=== PATIENT | male | born 1960 | race Caucasian/White ===

== ENCOUNTER → 2017-05-08 | Outpatient (CLI) | payer OTHER | END | disposition home or self-care (01) | LOC: C.LABPBG 15:29 | PROVIDERS: ATTEND Nurse Practitioner Family | DX: R35.1 Nocturia (principal); N39.0 Urinary tract infection, site not specified; R39.9 Unspecified symptoms and signs involving the genitourinary system; R30.0 Dysuria ==

== ENCOUNTER 2024-10-08 08:52 | Inpatient (IN) ==
--- NOTE | 2024-10-07 08:24 | Anesthesiology Consultation ---
Date of Service October 07, 2024 Assessment & Plan (1) Encounter for pre-operative examination: - Check BSG DOS - Infectious disease screening: Per assessment on 10/07/24- No known recent infectious disease contacts or current infectious disease symptoms. Dialysis patient ([facility] in [place]). Will order Malik for DOS per protocol. - Trulicity instructions: Patient informed by PAT RN to stop 7 days prior to surgery- voiced understanding. DOS 10/08/24. Advised last dose to be 09/28/24. - Preop testing: Per Marita with surgeon's office, patient did not have preop labs/EKG/CXR performed and surgeon is requesting preop CBC, BMP, EKG, CXR be done DOS. She states surgeon made aware that preop urine culture was not performed and he indicates he is okay with proceeding without preop urine culture from his perspective. Chart Review Chart Review: Acceptable Risk for Surgery (pending preop testing DOS) and Patient NOT seen in Pre Admission Testing History Surgery Operation Date: 05/28/24 07:30 Proposed Procedures p Robotic Laparoscopic Radical Nephrectomy Left - Magdi Hahn MD Operation Date: 10/08/24 10:30 Proposed Procedures p Laparoscopic Hand-Assisted Nephrectomy - Left - Magdi Hahn MD Height/Weight Height: 5 ft 7.5 in Weight: 86.183 kg Allergies Allergy/AdvReac Type Severity Reaction Status Date / Time metronidazole Allergy Severe swelling Verified 10/04/24 14:24 of face iodine Allergy Intermediate vomiting Verified 10/04/24 14:24 adhesive tape Allergy Mild Rash Verified 10/04/24 14:24 latex Allergy Mild Rash Verified 10/04/24 14:24 Medications Home Medications Medication Instructions Recorded Confirmed Last Taken dulaglutide 1.5 mg/0.5 mL 1.5 mg subcut .COMPLEX 11/04/20 10/04/24 09/21/24 08:00 subcutaneous pen injector (Trulicity) insulin lispro 100 unit/mL See Rx Instructions subcut UD 11/04/20 10/04/24 08/30/22 19:00 subcutaneous solution (Humalog unknown U-100 Insulin) metoprolol succinate 50 mg 50 mg PO QAM 11/04/20 10/04/24 09/26/24 09:05 tablet,extended release 24 hr omega 7-ufj-ixx-fish oil 300 1 cap PO BID 07/11/22 10/04/24 09/25/24 21:00 mg-1,000 mg capsule (Fish Oil) chlorthalidone 25 mg tablet 25 mg PO QAM 08/22/22 10/04/24 08/30/22 06:00 cyclobenzaprine 10 mg tablet 10 mg PO TID PRN Muscle Spasm 02/28/24 10/04/24 Unknown amlodipine 5 mg tablet 5 mg PO QAM #90 tabs 04/04/24 10/04/24 09/26/24 09:05 pantoprazole 40 mg tablet,delayed 40 mg PO QAM #90 tabs 05/09/24 10/04/24 09/25/24 08:00 release (Protonix) hydroxyzine HCl 25 mg tablet 25 mg PO DAILY PRN anxiety 10/04/24 10/04/24 Unknown hydroxyzine pamoate 25 mg capsule 25 mg PO UD PRN Nausea 10/04/24 10/04/24 Unknown (Vistaril) prochlorperazine maleate 5 mg 5 mg PO UD PRN Nausea 10/04/24 10/04/24 Unknown tablet (Compazine) ropinirole 0.5 mg tablet 1 mg PO UD 10/04/24 10/04/24 Unknown tamsulosin 0.4 mg capsule 0.4 mg PO QAM 10/04/24 10/04/24 Unknown Past Medical History Medical History (Updated 10/07/24 @ 08:29 by Shu Nam) Asthma BPH (benign prostatic hyperplasia) Chronic back pain Chronic kidney disease, stage IV (severe) HD [facility] in [place] Follows with Dr. Man DM type 2 (diabetes mellitus, type 2) IDDM GERD (gastroesophageal reflux disease) HLD (hyperlipidemia) [place] (hard of hearing) HTN (hypertension) Insulin pump in place "Does not work" Takes humalog on sliding scale Limb alert care status Left AVF Nephrolithiasis, uric acid Hx Renal cancer Dr. Man monitors TMJ (temporomandibular joint disorder) clicking, denies hx locking Past Family History Family History Sister Kidney disease chronic cystitis and recurrent gross hematuria Mother Heart disease Other Hypertension Past Surgical History Surgical History (Updated 10/07/24 @ 08:29 by Shu Nam) AV fistula (2022) left upper arm History of biopsy renal - renal cancer History of cardiac catheterization (02/04/19) PH Venu- significant small vessel CAD involving first diagonal branch of LAD, not amenable to revascularization History of dialysis fistulography (09/26/24) [place], fistula ballooned History of umbilical hernia repair Hx of tonsillectomy Hx of total knee replacement R/L S/P rotator cuff repair Right Social History Smoking Status: Never smoker Do You Dip or Chew Tobacco: No Hx Alcohol Use: No Hx Substance Use: No substance use type: does not use Lab Results Anesthesia Preop Results Results Anesthesia Widget: K 4.7 mmol/L (3.5-5.1) 09/26/24 POC Glucose 191 mg/dl (70-99) H 09/26/24 COVID-19 PCR NEGATIVE (Negative) 10/05/24 SARS-CoV-2, RNA, NAAT NEGATIVE (NEGATIVE) 09/26/24 Testing Cardiac Catheterization Date: 02/04/19 Significant small vessel CAD involving first diagonal branch of LAD, not amenable to revascularization. Normal LV systolic function. Medical therapy and risk factor modification recommended.
[~2024-10-08 08:52] MED LIST: PHENYLEPHRINE 100MCG/ML 5ML SYR ONE; ePHEDrine sulfate 50 MG/5 ML SYR ONE
[2024-10-08] MEDS: SODIUM CHLORIDE 0.9% 1,000 ML IV SCH ×2 (09:54→17:07)
[2024-10-08 10:00] LABS: Basophils # (auto) 0.04 K/uL (0.00-0.20); Basophils % (auto) 0.7 %; Eosinophils # (auto) 0.28 K/uL (0.00-0.50); Hematocrit (blood only) 33.4 % (42.0-52.0); Hemoglobin 11.4 g/dl (14.0-18.0); Immature Granulocytes # (auto) 0.03 K/uL (0.01-0.20); Immature Granulocytes % (auto) 0.5 %; Lymphocytes # (auto) 1.11 K/uL (1.20-3.40); Lymphocytes % (auto) 19.9 %; Mean Corpuscular Hemoglobin 30.3 pg (25.0-34.0); Mean Corpuscular Hgb Conc 34.1 g/dL (32.0-36.0); Mean Corpuscular Volume 88.8 fL (80.0-100.0); Mean Platelet Volume 8.6 fL (9.4-12.4); Monocytes # (auto) 0.63 K/uL (0.11-0.59); Monocytes % (auto) 11.3 %; Neutrophils # (auto) 3.48 K/uL (1.40-6.50); Neutrophils % (auto) 62.6 %; Platelet Count 207 K/uL (130-400); RDW Coefficient of Variation 13.1 % (11.5-14.5); RDW Standard Deviation 42.4 fL (36.4-46.3); Red Blood Count 3.76 M/uL (4.70-6.10); White Blood Count 5.57 K/ul (4.8-10.8)
[2024-10-08 10:15] LABS: BUN Creatinine Ratio 8.5 (10-20); Calcium 10.1 mg/dl (8.6-10.3); Creatinine Clr Calc Pharmacy 13.9 ml/min; Potassium 4.1 mmol/L (3.5-5.1)
--- NOTE | 2024-10-08 10:33 | XRay Report ---
XR chest 2V PA/lateral CLINICAL HISTORY: Preoperative evaluation. COMPARISON STUDY: Chest radiograph August 25, 2022. FINDINGS: Lung volumes are unchanged. There is no pneumothorax or pleural effusion. There is no conso lidation to suggest pneumonia. Cardiomediastinal silhouette is stable. Pulmonary vascularity is evelia l. Bibasilar opacities favor atelectasis. IMPRESSION: No acute cardiopulmonary findings. No change in appearance of the chest. ACT 112: Negative or not required by law. Electronically signed by: Trino Sherman M.D. 10/08/2024 10:32 AM
--- NOTE | 2024-10-08 10:48 | History & Physical Bridge Note ---
Date of Service October 08, 2024 History & Physical Bridge Note I have examined the patient, reviewed the History & Physical and in the interval since the performance of the History & Physical I have noted the following changes of clinical significance: no changes noted
[2024-10-08] MEDS ORDERED: ROCURONIUM BROMIDE 10 MG/ML 5 ML VIAL IV ONE (11:10)
[2024-10-08] MEDS ORDERED: fentaNYL citrate PF 100 MCG/2 ML VIAL ONE ×2 (11:10→13:06)
[2024-10-08] MEDS ORDERED: PROPOFOL IV EMULSION 10 MG/ML 20 ML VIAL IV ONE (11:10)
[2024-10-08] MEDS ORDERED: MIDAZOLAM HCL 1 MG/ML 2ML VIAL ONE (11:10)
[2024-10-08] MEDS ORDERED: LIDOCAINE 2% 2 ML VIAL/AMP(20MG/ML) INFIL ONE (11:10)
[2024-10-08] MEDS ORDERED: PHENYLEPHRINE HCL 10 MG/ML VIAL ONE (11:16)
[2024-10-08] MEDS: ceFAZolin 2000MG 2,000 MG/15 ML SYR IV SCH (11:37)
--- NOTE | 2024-10-08 12:08 | Nephrology Consultation ---
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 [place] MWF 3:13 2K 2.5Ca Na139 HCO3 38, F-180NR, Qb 450/Qd 800 [id number] * Volume status and electrolyte balance are currently acceptable * Will schedule next HD for 10/09/24 * Monitor BMP, H&H (2) Papillary renal cell carcinoma: * s/p laparoscopic L nephrectomy 10/08/[address] Hahn History of Present Illness Reason for Consultation: ESKD-D Attending Physician: Magdi Hahn MD History of Present Illness Mr. Sharma is a 63 year old white male who is seen at the request of the [facility] hospitalist service due to ESKD-D. Information for the HPI is obtained from direct patient interview and review of the EMR. HPI is summarized as follows: Mr. Sharma has ESKD and dialyzes at [facility] under the care of Dr. Ortiz (MWF 3:13 2K 2.5Ca Na139 HCO3 38, F-180NR, Qb 450/Qd 800 [id number]). In 2020 he underwent L tunica-biloxi kidney biopsy at [facility]. 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 Mr. Sharma was monitored by Dr. Hahn and Dr. Roa with plans for nephrectomy once HD initiated. Mr. Sharma was started on IHD 02/18. He was admitted to [facility] today following his L nephrectomy. Plan will be for 6 weeks healing and then possible transition to home dialysis (PD or HHD). Mr. Sharma's medical history is significant for AODM, HTN, BPH, OA/DJD. He has a functional L upper arm AVF that was created by Dr. Marroquin 09/19. Mr. Sharma was seen in PACU. He voiced no medical concerns Allergies Allergy/AdvReac Type Severity Reaction Status Date / Time metronidazole Allergy Severe swelling Verified 10/08/24 09:36 of face iodine Allergy Intermediate vomiting Verified 10/08/24 09:36 adhesive tape Allergy Mild Rash Verified 10/08/24 09:36 latex Allergy Mild Rash Verified 10/08/24 09:36 Home Medications Medication Instructions Recorded Confirmed Type dulaglutide 1.5 mg/0.5 mL 1.5 mg subcut .COMPLEX 11/04/20 10/08/24 History subcutaneous pen injector (Trulicity) insulin lispro 100 unit/mL See Rx Instructions subcut UD 11/04/20 10/08/24 History subcutaneous solution (Humalog U-100 Insulin) metoprolol succinate 50 mg 50 mg PO QAM 11/04/20 10/08/24 History tablet,extended release 24 hr omega 2-lrl-jnd-fish oil 300 1 cap PO BID 07/11/22 10/08/24 History mg-1,000 mg capsule (Fish Oil) chlorthalidone 25 mg tablet 25 mg PO QAM 08/22/22 10/08/24 History cyclobenzaprine 10 mg tablet 10 mg PO TID PRN Muscle Spasm 02/28/24 10/08/24 History amlodipine 5 mg tablet 5 mg PO QAM #90 tabs 04/04/24 10/08/24 Rx pantoprazole 40 mg tablet,delayed 40 mg PO QAM #90 tabs 05/09/24 10/08/24 Rx release (Protonix) hydroxyzine HCl 25 mg tablet 25 mg PO DAILY PRN anxiety 10/04/24 10/08/24 History hydroxyzine pamoate 25 mg capsule 25 mg PO UD PRN Nausea 10/04/24 10/08/24 History (Vistaril) prochlorperazine maleate 5 mg 5 mg PO UD PRN Nausea 10/04/24 10/08/24 History tablet (Compazine) ropinirole 0.5 mg tablet 1 mg PO UD 10/04/24 10/08/24 History tamsulosin 0.4 mg capsule 0.4 mg PO QAM 10/04/24 10/08/24 History Patient History Medical History Limb alert care status Left AVF BPH (benign prostatic hyperplasia) Chronic kidney disease, stage IV (severe) HD [email or web address] in [place] Follows with Dr. Man Chronic back pain GERD (gastroesophageal reflux disease) Insulin pump in place "Does not work" Takes humalog on sliding scale DM type 2 (diabetes mellitus, type 2) IDDM Renal cancer Dr. Man monitors TMJ (temporomandibular joint disorder) clicking, denies hx locking [place] (hard of hearing) HLD (hyperlipidemia) HTN (hypertension) Asthma Nephrolithiasis, uric acid Hx Surgical History History of dialysis fistulography (09/26/24) [facility], fistula ballooned AV fistula (2022) left upper arm Hx of total knee replacement R/L S/P rotator cuff repair Right History of umbilical hernia repair History of biopsy renal - renal cancer History of cardiac catheterization (02/04/19) PH Venu- significant small vessel CAD involving first diagonal branch of LAD, not amenable to revascularization Hx of tonsillectomy Family History Sister Kidney disease chronic cystitis and recurrent gross hematuria Mother Heart disease Other Hypertension Social History Smoking Status: Never smoker Second Hand Exposure: No; Do You Dip or Chew Tobacco: No; Tobacco Cessation Education Requested by Patient: No Hx Alcohol Use: No Hx Substance Use: No Preferred Language: Malay Communication Ability: Effective Visual Impairment: No Limitations Hearing Ability: Normal Human Geography Instructor Required: No Beliefs That Will Affect Care: None Current Living Situation: Significant Other Current Living Situation Comment: lives withander Ramirez current occupational status: retired Other Information That Helps Us Care for You: No Feels Safe at Home: Yes Safety Concerns: Feels Safe At This Time Diet: diabetic Physical Activity Frequency: Does not Exercise Seatbelt Use: always Do you think of yourself as: straight/heterosexual Gender Identity: Male Assistive Devices: Cane and Glasses Review of Systems Constitutional: no fever Eyes: no problem reported Ear, Nose, Mouth, Throat: no problem reported Respiratory: no cough and no dyspnea Cardiovascular: no chest pain Gastrointestinal: no abdominal pain, no nausea, no vomiting and no diarrhea/loose stools Integumentary: no rash Physical Exam Constitutional: not in distress Eyes: PERRL, conjunctivae normal, anicteric sclerae ENMT: external ear and nose normal, oropharynx normal Neck: trachea midline, no thyromegaly Respiratory: normal respiratory effort, lungs clear to auscultation Cardiovascular: RRR, no murmur, no edema Extremities: + AV fistula (+ bruit) Gastrointestinal (Abdomen): Inspection/Auscultation: + hypoactive bowel sounds Musculoskeletal: Extremities: no cyanosis and no clubbing Skin: no rashes, warm and dry Neurologic: awake; not confused Results & Data Vital Signs (Past 12 Hours) Vital Signs Temp Pulse Resp BP Pulse Ox O2 Del Method 10/08/24 09:40 36.6 C 85 18 190/89 H 98 Room Air Laboratory Results Laboratory Results WBC 5.57 K/ul (4.8-10.8) 10/08/24 09:40 RBC 3.76 M/uL (4.70-6.10) L 10/08/24 09:40 Hgb 11.4 g/dl (14.0-18.0) L 10/08/24 09:40 Hct 33.4 % (42.0-52.0) L 10/08/24 09:40 MCV 88.8 fL (80.0-100.0) 10/08/24 09:40 MCH 30.3 pg (25.0-34.0) 10/08/24 09:40 MCHC 34.1 g/dL (32.0-36.0) 10/08/24 09:40 RDW Std Deviation 42.4 fL (36.4-46.3) 10/08/24 09:40 RDW Coeff of Rip 13.1 % (11.5-14.5) 10/08/24 09:40 Plt Count 207 K/uL (130-400) 10/08/24 09:40 MPV 8.6 fL (9.4-12.4) L 10/08/24 09:40 Immature Gran % (Auto) 0.5 % 10/08/24 09:40 Neut % (Auto) 62.6 % 10/08/24 09:40 Lymph % (Auto) 19.9 % 10/08/24 09:40 [place] % (Auto) 11.3 % 10/08/24 09:40 Eos % (Auto) 5.0 % 10/08/24 09:40 Baso % (Auto) 0.7 % 10/08/24 09:40 Neut # (Auto) 3.48 K/uL (1.40-6.50) 10/08/24 09:40 Lymph # (Auto) 1.11 K/uL (1.20-3.40) L 10/08/24 09:40 [place] # (Auto) 0.63 K/uL (0.11-0.59) H 10/08/24 09:40 Eos # (Auto) 0.28 K/uL (0.00-0.50) 10/08/24 09:40 Baso # (Auto) 0.04 K/uL (0.00-0.20) 10/08/24 09:40 Immature Gran # (Auto) 0.03 K/uL (0.01-0.20) 10/08/24 09:40 Sodium 142 mmol/L (136-145) 10/08/24 09:40 Potassium 4.1 mmol/L (3.5-5.1) 10/08/24 09:40 Chloride 102 mmol/L (98-107) 10/08/24 09:40 Carbon Dioxide 31 mmol/L (21-32) 10/08/24 09:40 Anion Gap 9 (3-11) 10/08/24 09:40 BUN 49 mg/dl (6-23) H 10/08/24 09:40 Creatinine 5.75 mg/dl (0.6-1.4) H* 10/08/24 09:40 Est Cr Clr Drug Dosing 13.9 ml/min 10/08/24 09:40 eGFR 10.24 10/08/24 09:40 BUN/Creatinine Ratio 8.5 (10-20) L 10/08/24 09:40 Glucose 118 mg/dl (70-99(Fasting)) H 10/08/24 09:40 POC Glucose 105 mg/dl (70-99) H 10/08/24 09:29 Calcium 10.1 mg/dl (8.6-10.3) 10/08/24 09:40 Blood Type A Positive 10/08/24 09:40 Antibody Screen NEGATIVE 10/08/24 09:40 Impressions Chest X-Ray 10/08/24 05:00 XR chest 2V PA/lateral CLINICAL HISTORY: Preoperative evaluation. COMPARISON STUDY: Chest radiograph August 25, 2022. FINDINGS: Lung volumes are unchanged. There is no pneumothorax or pleural effusion. There is no consolidation to suggest pneumonia. Cardiomediastinal silhouette is stable. Pulmonary vascularity is normal. Bibasilar opacities favor atelectasis. IMPRESSION: No acute cardiopulmonary findings. No change in appearance of the chest. ACT 112: Negative or not required by law. Electronically signed by: Trino Sherman M.D. 10/08/2024 10:32 AM PG Care Time/CCT Total # of Minutes Spent Total Time Spent with Patient: Total time spent is greater than 50% in coordination of care (as documented) at patient's floor/unit and/or counseling patient: Coding Level of Care Code 61019 IN/OBS CONSULT LVL 5,80M Diagnoses End stage kidney disease N18.6 Papillary renal cell carcinoma C64.9
[2024-10-08] MEDS ORDERED: DEXAMETHASONE SOD INJ 4 MG/ML VIAL ONE (12:19)
[2024-10-08] MEDS: BUPIVACAINE 0.5 % 5 MG/1 ML MPF 30ML VIAL ONE (13:19)
[2024-10-08] MEDS ORDERED: SUGAMMADEX SODIUM 200 MG/2 ML VIAL IV ONE (13:37)
--- NOTE | 2024-10-08 13:49 | Operative Report ---
PG Post Operative Report Pre & Post Diagnosis Operation Date: 10/08/24 10:30 Pre-Op Diagnosis: Papillary Renal Cell Carcanoma-left kidney Post-Op Diagnosis: Papillary Renal Cell Carcanoma-left kidney I identified the patient and participated in the time-out.: Yes Procedure Operation Date: 10/08/24 10:30 Actual Procedures p Laparoscopic Hand-Assisted Left Nephrectomy(Left) - Magdi Hahn MD Surgeon Magdi Hahn MD Civil Engineer Helper Noemy Tolentino Estimated Blood Loss 25 Findings Consistent with Post-Op Diagnosis Specimens Left kidney Description of Procedure Patient was identified in the preoperative holding area and appropriate informed consents reviewed and completed. He was transported to the operating suite he received appropriate preoperative antibiotics and anesthesia. Placed in a [id number] left side up lateral decubitus position and the bed was flexed. He was padded and braced appropriately before sterile prep and drape. I marked tentative locations for port site access and extraction site in the left lower quadrant. This Bran style incision was then made in the left lower quadrant I carried my dissection through Adair's fascia to the external oblique fascia, the internal oblique fascia, the transversalis fascia and ultimately the peritoneum. The peritoneum was punctured sharply and a finger sweep confirmed no evidence of adhesions. I then opened the peritoneum for the length of the incision before placing a GelPort retractor. I utilized a 12 mm laparoscopic port placed through the GelPort and insufflated the abdomen. I utilized the 30 degree lens to inspect the abdominal wall and confirmed that to 12 mm accounts payable assistant port sites located along the lateral border of the rectus muscle just under the costal margin and approximately 8. Centimeters inferior were both clear adhesions and safe to proceed with port placement. I incised the skin but ultimately placed the port through the abdominal wall onto my hand. We then began the laparoscopic portion of the case. I incised the white line of T[place] and mobilized the splenic flexure of the colon medializing the colon. The kidney is relatively small but has a significant amount of perinephric fat. I was able to dissect inferior to the kidney and onto the psoas muscle. I was able to elevate the lower pole of the kidney and stretch the hilar vessels. I did not readily visualize the gonadal vein but gradually worked my way up the medial aspect of the kidney until I encountered the inferior aspect of the renal vein. I could palpate the renal artery immediately behind it. Before transecting the vessels, I actually mobilized the kidney further by incising the lateral attachments to the kidney and the supe rior attachments to the kidney. This allowed me to elevate the kidney entirely and stretch the hilar vessels completely. I then utilized a staple load to control of the vessels together. The second load was fired between the adrenal gland and the kidney and a third load fired across the medial superior aspect of the kidney. I then utilized harmonic scalpel to continue my dissection around the upper pole of the kidney. Of note, I did incise the kidney slightly in this area during this dissection but no kidney was left behind. I was able to easily correct back to an appropriate plane. This left the lower cone of Gerota's fascia as well as the ureter intact. I utilized the harmonic scalpel to transect the structures. Hemostasis was excellent. The specimen was extracted through the GelPort. I inspected the renal fossa. There is a minor muscle ooze posteriorly from a small penetrating vessel, I was able to control this with the harmonic scalpel. Otherwise hemostasis was perfect. The colon was pushed back and lateral position and the omentum draped over the surgical site. I then proceeded to close the extraction port in multiple layers by first reapproximating the peritoneumon the off chance he returns to peritoneal dialysis I think peritoneal closure would be important. I then proceeded to close the internal oblique fascia followed by the external oblique fascia, both with running 0 Vicryl sutures. Adair's fascia was reapproximated before the skin was closed with 4-0 Monocryl. A 0 Vicryl on a UR 6 was utilized to close the to 12 mm accounts payable assistant ports followed by 4-0 Monocryl through the skin. Half percent Marcaine was utilized infiltrate the skin and muscle layers during the closure. Dermabond was placed over each incision. The specimen was passed off the table. Patient was reversed of anesthesia and taken to the recovery room in stable condition. There were no complications. Noemy Tolentino assisted from incision to closure I attest to the content of the Intraoperative Record and any orders documented therein. Any exceptions are noted below.
[2024-10-08] MEDS ORDERED: ePHEDrine sulfate 50 MG/ML AMP IV PRN (14:27)
[2024-10-08] MEDS ORDERED: fentaNYL citrate PF 100 MCG/2 ML VIAL IV PRN (14:27)
[2024-10-08] MEDS ORDERED: ONDANSETRON INJ 2 MG/ML 2 ML VIAL IV PRN ×2 (14:27→16:27)
[2024-10-08] MEDS ORDERED: HYDROmorphone INJ 1 MG/ML SYRINGE IV PRN (14:27)
[2024-10-08] MEDS ORDERED: ATROPINE SULFATE 0.1 MG/ML 10ML SYR IV PRN (14:27)
[2024-10-08 14:33] LABS: Basophils # (auto) 0.03 K/uL (0.00-0.20); Basophils % (auto) 0.4 %; Eosinophils # (auto) 0.21 K/uL (0.00-0.50); Eosinophils % (auto) 2.6 %; Hematocrit (blood only) 30.3 % (42.0-52.0); Hemoglobin 10.4 g/dl (14.0-18.0); Immature Granulocytes # (auto) 0.05 K/uL (0.01-0.20); Immature Granulocytes % (auto) 0.6 %; Lymphocytes # (auto) 0.93 K/uL (1.20-3.40); Lymphocytes % (auto) 11.5 %; Mean Corpuscular Hemoglobin 30.6 pg (25.0-34.0); Mean Corpuscular Hgb Conc 34.3 g/dL (32.0-36.0); Mean Corpuscular Volume 89.1 fL (80.0-100.0); Mean Platelet Volume 8.9 fL (9.4-12.4); Monocytes # (auto) 0.27 K/uL (0.11-0.59); Monocytes % (auto) 3.3 %; Neutrophils # (auto) 6.61 K/uL (1.40-6.50); Neutrophils % (auto) 81.6 %; Platelet Count 170 K/uL (130-400); RDW Standard Deviation 42.1 fL (36.4-46.3)
[2024-10-08 14:42] LABS: Calcium 9.2 mg/dl (8.6-10.3); Potassium 4.8 mmol/L (3.5-5.1)
[2024-10-08 15:00] LABS: BUN Creatinine Ratio 8.4 (10-20); Creatinine Clr Calc Pharmacy 13.7 ml/min
--- NOTE | 2024-10-08 15:34 | Anesthesiology Progress Note ---
Date of Service October 08, 2024 Anesthesia Post Procedure Vital Signs Vital Signs: Temp Pulse Pulse Resp BP Pulse Ox O2 Del Method 10/08/24 15:20 36.7 C 94 H 19 166/92 H 96 Nasal Cannula 10/08/24 15:05 96 H 17 164/90 H 96 Nasal Cannula 10/08/24 14:55 97 H 15 165/88 H 97 Nasal Cannula 10/08/24 14:45 95 H 12 176/93 H 98 Nasal Cannula 10/08/24 14:35 98 H 16 172/90 H 99 Oxymask 10/08/24 14:25 97 H 18 168/86 H 100 Oxymask 10/08/24 14:15 97 H 16 164/88 H 100 Oxymask 10/08/24 14:05 96 H 21 164/85 H 100 Oxymask 10/08/24 13:55 36.2 C L 103 H 15 166/88 H 96 Oxymask 10/08/24 09:40 36.6 C 85 18 190/89 H 98 Room Air O2 Flow Rate 10/08/24 15:20 2 10/08/24 15:05 2 10/08/24 14:55 2 10/08/24 14:45 2 10/08/24 14:35 2 10/08/24 14:25 2 10/08/24 14:15 4 10/08/24 14:05 6 10/08/24 13:55 8 10/08/24 09:40 Pain Intensity Abdomen: Pain Intensity: 5 Transfer of Care Handoff Completed per policy Notes Mental Status: alert / awake / arousable Patient Amnestic to Procedure: Yes Nausea / Vomiting: adequately controlled Pain: adequately controlled Airway Patency, RR, SpO2: stable & adequate BP & HR: stable & adequate Hydration State: stable & adequate Anesthetic Complications: no major complications apparent and Pt Satisfied with anesthetic care
[2024-10-08] MEDS ORDERED: ceFAZolin 2000MG 2,000 MG/15 ML SYR IV SCH (16:27)
[2024-10-08] MEDS ORDERED: hydrOXYzine HCl 25 MG TAB PO PRN (16:27)
[2024-10-08] MEDS ORDERED: PHARMACY GLYCEMIC MGMT CONSULT PRN (16:27)
[2024-10-08] MEDS: fentaNYL citrate PF 100 MCG/2 ML VIAL ONE (16:28)
[2024-10-08] MEDS: oxyCODONE HCL IR 5 MG TAB (IMMEDIATE RELEASE) PO PRN ×2 (16:46→20:00)
[2024-10-08] MEDS ORDERED: DEXTROSE 50% 50 ML SYRINGE IV PRN (17:00)
[2024-10-08] MEDS ORDERED: CARBOHYDRATES FOR HYPOGLYCEMIA PO PRN (17:00)
[2024-10-08] MEDS ORDERED: GLUCOSE 40% GEL 15 GM TUBE PO PRN (17:00)
[2024-10-08] MEDS ORDERED: GLUCAGON FOR INJ 1 MG VIAL SQ PRN (17:00)
[2024-10-08] MEDS ORDERED: GLUCOSE 10 TAB/TUBE PO PRN (17:00)
[2024-10-08] MEDS: INSULIN ASPART PER UNIT CHARGE SC SCH (17:07)
--- NOTE | 2024-10-08 17:17 | Pharmacy Report ---
Pharmacy Glycemic Short Note 2 - Date of Service October 08, 2024 - Glycemic Short BSG Results (Last 24 hours): 10/08/24 10/08/24 10/08/24 09:29 09:40 14:13 Glucose 118 H 229 H POC Glucose 105 H 10/08/24 16:19 Glucose POC Glucose 260 H OUTPATIENT ANTIDIABETIC REGIMEN: * trulicity, humalog SSI ASSESSMENT: * 63 year old, s/p surgery - POD 0. Pharmacy consulted for glycemic management. BSG>200s postop, likely related to steroids given intraoperatively. Will start novolog for now. Patient is type 2 diabetic managed on just SSI and trulicity outpatient. He is also ESRD on HD. Plan to add on long acting insulin at HS if BSGs still >200. PLAN FOR INPATIENT GLYCEMIC CONTROL: * Hold outpatient oral diabetes medications * Basal insulin * Lantus 0-10 units HS depending on BSG value * Bolus insulin * NovoLog per scale ACHS or Q6hrs while NPO * Goal Range: Low 110 mg/dL - High 140 mg/dL * Correction Factor: 35 mg/dL/unit * Nutritional / Prandial insulin per carb ratio of 1 unit per 10 grams CHO consumed
[2024-10-08] MEDS: ACETAMINOPHEN 325 MG TAB PO SCH (17:59)
[2024-10-08] MEDS: DOCUSATE SODIUM 100 MG CAP PO SCH (20:42)
--- NOTE | 2024-10-08 22:11 | Electrocardiogram Report ---
Test Reason : Blood Pressure : */* mmHG Vent. Rate : 83 BPM Atrial Rate : 83 BPM P-R Int : 162 ms QRS Dur : 104 ms QT Int : 410 ms P-R-T Axes : 0 2 63 degrees QTcB Int : 481 ms Normal sinus rhythm Minimal voltage criteria for LVH, may be normal variant Prolonged QT Abnormal ECG When compared with ECG of 25-Aug-2022 14:38, Nonspecific T wave abnormality no longer evident in Inferior leads Confirmed by Lane Mackenzie ([id number]) on 10/08/2024 10:10:39 PM Referred By: Magdi Hahn Confirmed By: Lane Mackenzie
[2024-10-09] MEDS: ceFAZolin 1000MG 1,000 MG/7.5 ML SYR IV SCH (05:50)
[2024-10-09 07:01] VITALS: RESP 16
[2024-10-09] MEDS: amLODIPine BESYLATE 5 MG TAB PO SCH (07:02)
[2024-10-09] MEDS: METOPROLOL SUCC 50MG EXT REL TAB PO SCH (07:02)
[2024-10-09 07:06] LABS: Basophils # (auto) 0.02 K/uL (0.00-0.20); Basophils % (auto) 0.2 %; Eosinophils # (auto) 0.01 K/uL (0.00-0.50); Eosinophils % (auto) 0.1 %; Hematocrit (blood only) 30.4 % (42.0-52.0); Hemoglobin 10.3 g/dl (14.0-18.0); Immature Granulocytes # (auto) 0.06 K/uL (0.01-0.20); Immature Granulocytes % (auto) 0.5 %; Lymphocytes # (auto) 1.13 K/uL (1.20-3.40); Lymphocytes % (auto) 9.1 %; Mean Corpuscular Hemoglobin 30.4 pg (25.0-34.0); Mean Corpuscular Hgb Conc 33.9 g/dL (32.0-36.0); Mean Corpuscular Volume 89.7 fL (80.0-100.0); Mean Platelet Volume 9.2 fL (9.4-12.4); Monocytes # (auto) 0.68 K/uL (0.11-0.59); Monocytes % (auto) 5.5 %; Neutrophils # (auto) 10.57 K/uL (1.40-6.50); Neutrophils % (auto) 84.6 %; Platelet Count 194 K/uL (130-400); RDW Coefficient of Variation 12.8 % (11.5-14.5); RDW Standard Deviation 42.3 fL (36.4-46.3); Red Blood Count 3.39 M/uL (4.70-6.10); White Blood Count 12.47 K/ul (4.8-10.8)
[2024-10-09 07:21] LABS: BUN Creatinine Ratio 7.8 (10-20); Calcium 9.7 mg/dl (8.6-10.3); Creatinine Clr Calc Pharmacy 10.9 ml/min; Potassium 5.8 mmol/L (3.5-5.1)
[2024-10-09] MEDS: CHLORTHALIDONE 25 MG TAB PO SCH (08:48)
[2024-10-09] MEDS: TAMSULOSIN HCL 0.4 MG CAP PO SCH (08:48)
[2024-10-09] MEDS: PANTOprazole 40 MG TAB PO SCH (08:49)
--- NOTE | 2024-10-09 08:49 | Nephrology Progress Note ---
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 Orders for HD placed in EMR. HD RN crop nutrition scientist has been notified * Monitor BMP, H&H (2) Papillary renal cell carcinoma: Plan: * s/p laparoscopic L nephrectomy 10/08/[address] Hahn Admission and Anticipated Discharge Date Admission Date: October 08, 2024 Subjective Mr. Sharma was evaluated in his hospital room this morning. He reports that he tolerated a liquid diet this morning. He is anxious to have HD and then hopefully return home. He voices no medical concerns. Review of Systems Constitutional: no fever Eyes: no problem reported Ear, Nose, Mouth, Throat: no problem reported Respiratory: no cough and no dyspnea Cardiovascular: no chest pain Gastrointestinal: no abdominal pain, no nausea, no vomiting and no diarrhea/lo ose stools Integumentary: no rash Physical Exam Constitutional: not in distress Eyes: PERRL, conjunctivae normal, anicteric sclerae ENMT: external ear and nose normal, oropharynx normal Neck: trachea midline, no thyromegaly Respiratory: normal respiratory effort, lungs clear to auscultation Cardiovascular: RRR, no murmur, no edema Extremities: + AV fistula (+ bruit) Gastrointestinal (Abdomen): Inspection/Auscultation: + hypoactive bowel sounds Musculoskeletal: Extremities: no cyanosis and no clubbing Skin: no rashes, warm and dry Neurologic: awake; not confused Results & Data Vital Signs (Past 12 Hours) Vital Signs Temp Pulse Resp BP Pulse Ox O2 Del Method 10/09/24 08:44 201/88 H 10/09/24 07:00 36.8 C 94 H 16 189/91 H 98 Room Air 10/09/24 03:03 36.9 C 93 H 18 181/90 H 95 Room Air 10/08/24 23:00 37.1 C 91 H 18 173/87 H 95 Room Air Laboratory Results Laboratory Results - last 24 hr 10/08/24 10/08/24 10/08/24 09:29 09:40 14:13 WBC 5.57 8.10 RBC 3.76 L 3.40 L Hgb 11.4 L 10.4 L Hct 33.4 L 30.3 L MCV 88.8 89.1 MCH 30.3 30.6 MCHC 34.1 34.3 RDW Std Deviation 42.4 42.1 RDW Coeff of Rip 13.1 13.0 Plt Count 207 170 MPV 8.6 L 8.9 L Immature Gran % (Auto) 0.5 0.6 Neut % (Auto) 62.6 81.6 Lymph % (Auto) 19.9 11.5 [place] % (Auto) 11.3 3.3 Eos % (Auto) 5.0 2.6 Baso % (Auto) 0.7 0.4 Neut # (Auto) 3.48 6.61 H Lymph # (Auto) 1.11 L 0.93 L [place] # (Auto) 0.63 H 0.27 Eos # (Auto) 0.28 0.21 Baso # (Auto) 0.04 0.03 Immature Gran # (Auto) 0.03 0.05 Sodium 142 140 Potassium 4.1 4.8 Chloride 102 103 Carbon Dioxide 31 26 Anion Gap 9 11 BUN 49 H 49 H Creatinine 5.75 H* 5.84 H* Est Cr Clr Drug Dosing 13.9 13.7 eGFR 10.24 10.05 BUN/Creatinine Ratio 8.5 L 8.4 L Glucose 118 H 229 H POC Glucose 105 H Calcium 10.1 9.2 Blood Type A Positive Antibody Screen NEGATIVE 10/08/24 10/08/24 10/09/24 16:19 20:26 06:24 WBC 12.47 H RBC 3.39 L Hgb 10.3 L Hct 30.4 L MCV 89.7 MCH 30.4 MCHC 33.9 RDW Std Deviation 42.3 RDW Coeff of Rip 12.8 Plt Count 194 MPV 9.2 L Immature Gran % (Auto) 0.5 Neut % (Auto) 84.6 Lymph % (Auto) 9.1 [place] % (Auto) 5.5 Eos % (Auto) 0.1 Baso % (Auto) 0.2 Neut # (Auto) 10.57 H Lymph # (Auto) 1.13 L [place] # (Auto) 0.68 H Eos # (Auto) 0.01 Baso # (Auto) 0.02 Immature Gran # (Auto) 0.06 Sodium 140 Potassium 5.8 H D Chloride 101 Carbon Dioxide 26 Anion Gap 13 H BUN 57 H Creatinine 7.29 H* D Est Cr Clr Drug Dosing 10.9 eGFR 7.70 BUN/Creatinine Ratio 7.8 L Glucose 162 H POC Glucose 260 H 209 H Calcium 9.7 Blood Type Antibody Screen 10/09/24 07:38 WBC RBC Hgb Hct MCV MCH MCHC RDW Std Deviation RDW Coeff of Rip Plt Count MPV Immature Gran % (Auto) Neut % (Auto) Lymph % (Auto) [place] % (Auto) Eos % (Auto) Baso % (Auto) Neut # (Auto) Lymph # (Auto) [place] # (Auto) Eos # (Auto) Baso # (Auto) Immature Gran # (Auto) Sodium Potassium Chloride Carbon Dioxide Anion Gap BUN Creatinine Est Cr Clr Drug Dosing eGFR BUN/Creatinine Ratio Glucose POC Glucose 151 H Calcium Blood Type Antibody Screen Laboratory Results - last 24 hr 10/08/24 10/08/24 10/08/24 09:29 09:40 14:13 WBC 5.57 8.10 RBC 3.76 L 3.40 L Hgb 11.4 L 10.4 L Hct 33.4 L 30.3 L MCV 88.8 89.1 MCH 30.3 30.6 MCHC 34.1 34.3 RDW Std Deviation 42.4 42.1 RDW Coeff of Rip 13.1 13.0 Plt Count 207 170 MPV 8.6 L 8.9 L Immature Gran % (Auto) 0.5 0.6 Neut % (Auto) 62.6 81.6 Lymph % (Auto) 19.9 11.5 [place] % (Auto) 11.3 3.3 Eos % (Auto) 5.0 2.6 Baso % (Auto) 0.7 0.4 Neut # (Auto) 3.48 6.61 H Lymph # (Auto) 1.11 L 0.93 L [place] # (Auto) 0.63 H 0.27 Eos # (Auto) 0.28 0.21 Baso # (Auto) 0.04 0.03 Immature Gran # (Auto) 0.03 0.05 Sodium 142 140 Potassium 4.1 4.8 Chloride 102 103 Carbon Dioxide 31 26 Anion Gap 9 11 BUN 49 H 49 H Creatinine 5.75 H* 5.84 H* Est Cr Clr Drug Dosing 13.9 13.7 eGFR 10.24 10.05 BUN/Creatinine Ratio 8.5 L 8.4 L Glucose 118 H 229 H POC Glucose 105 H Calcium 10.1 9.2 Blood Type A Positive Antibody Screen NEGATIVE 10/08/24 10/08/24 10/09/24 16:19 20:26 06:24 WBC 12.47 H RBC 3.39 L Hgb 10.3 L Hct 30.4 L MCV 89.7 MCH 30.4 MCHC 33.9 RDW Std Deviation 42.3 RDW Coeff of Rip 12.8 Plt Count 194 MPV 9.2 L Immature Gran % (Auto) 0.5 Neut % (Auto) 84.6 Lymph % (Auto) 9.1 [place] % (Auto) 5.5 Eos % (Auto) 0.1 Baso % (Auto) 0.2 Neut # (Auto) 10.57 H Lymph # (Auto) 1.13 L [place] # (Auto) 0.68 H Eos # (Auto) 0.01 Baso # (Auto) 0.02 Immature Gran # (Auto) 0.06 Sodium 140 Potassium 5.8 H D Chloride 101 Carbon Dioxide 26 Anion Gap 13 H BUN 57 H Creatinine 7.29 H* D Est Cr Clr Drug Dosing 10.9 eGFR 7.70 BUN/Creatinine Ratio 7.8 L Glucose 162 H POC Glucose 260 H 209 H Calcium 9.7 Blood Type Antibody Screen 10/09/24 07:38 WBC RBC Hgb Hct MCV MCH MCHC RDW Std Deviation RDW Coeff of Rip Plt Count MPV Immature Gran % (Auto) Neut % (Auto) Lymph % (Auto) [place] % (Auto) Eos % (Auto) Baso % (Auto) Neut # (Auto) Lymph # (Auto) [place] # (Auto) Eos # (Auto) Baso # (Auto) Immature Gran # (Auto) Sodium Potassium Chloride Carbon Dioxide Anion Gap BUN Creatinine Est Cr Clr Drug Dosing eGFR BUN/Creatinine Ratio Glucose POC Glucose 151 H Calcium Blood Type Antibody Screen PG Care Time/CCT Total # of Minutes Spent Total Time Spent with Patient: Total time spent is greater than 50% in coordination of care (as documented) at patient's floor/unit and/or counseling patient: Coding Level of Care Code 80503 SUB INP/OBS CARE 3/50MIN Diagnoses End stage kidney disease N18.6 Papillary renal cell carcinoma C64.9
--- NOTE | 2024-10-09 09:01 | Urology Progress Note ---
Date of Service October 09, 2024 Assessment & Plan (1) Papillary renal cell carcinoma: Plan Biopsy-proven renal cell carcinoma status post left radical nephrectomy yesterday Ambulate Catheter out Dialysis today and likely discharge home thereafter Admission and Anticipated Discharge Date Admission Date: October 08, 2024 Subjective Postop day #1 status post left radical nephrectomy Recovery very much on pace Physical Exam Physical Exam: Incisions appropriate, no erythema, no ecchymosis No drainage Results & Data Vital Signs (Past 12 Hours) Vital Signs Temp Pulse Resp BP Pulse Ox O2 Del Method 10/09/24 08:44 201/88 H 10/09/24 07:00 36.8 C 94 H 16 189/91 H 98 Room Air 10/09/24 03:03 36.9 C 93 H 18 181/90 H 95 Room Air 10/08/24 23:00 37.1 C 91 H 18 173/87 H 95 Room Air PG Care Time/CCT Total # of Minutes Spent Total Time Spent with Patient: Total time spent is greater than 50% in coordination of care (as documented) at patient's floor/unit and/or counseling patient: Coding Level of Care Code None Diagnoses Papillary renal cell carcinoma C64.9
[2024-10-09] MEDS: rOPINIRole HCL 1 MG TABLET PO SCH (10:28)
[2024-10-09] MEDS: hydrOXYzine HCl 25 MG TAB PO PRN (10:28)
[2024-10-09] MEDS: PROCHLORPERAZINE MALEATE 5 MG TAB PO PRN (10:28)
[2024-10-09 14:46] VITALS: BP 164/78; PULSE 86; TEMP 98.4; O2SAT 96
--- NOTE | 2024-10-09 14:58 | Discharge Summary ---
Date of Service October 09, 2024 Admission HPI Per Admitting Provider Patient with biopsy proven papillary renal cell carcinoma of the left kidney here for scheduled left radical nephrectomy. Principal Diagnosis Papillary renal cell carcinoma. Discharge Exam Constitutional no acute distress Respiratory normal respiratory effort; no respiratory distress and no labored breathing Gastrointestinal (Abdomen) Inspection/Auscultation: abdomen normal to inspection Musculoskeletal Head/Neck/Chest: normocephalic Skin Incisions C/D/I with dermabond Neurologic moves all extremities and awake Psychiatric Orientation: alert and oriented x 3 Discharge Data Allergies Allergy/AdvReac Type Severity Reaction Status Date / Time metronidazole Allergy Severe swelling Verified 10/08/24 09:36 of face iodine Allergy Intermediate vomiting Verified 10/08/24 09:36 adhesive tape Allergy Mild Rash Verified 10/08/24 09:36 latex Allergy Mild Rash Verified 10/08/24 09:36 Consultations 10/08/24 15:53 Consult Nephrology Routine 10/08/24 16:27 Consult Nephrology Routine Procedures Performed Operation Date: 10/08/24 10:30 Actual Procedures p Laparoscopic Hand-Assisted Left Nephrectomy(Left) - Magdi Hahn MD Hospital Course (1) Papillary renal cell carcinoma: Plan Biopsy-proven renal cell carcinoma status post left radical nephrectomy yesterday Ambulate Catheter out Dialysis today and likely discharge home thereafter Total Time Total Time Spent Total Time Spent (In Minutes): 29 Discharge Plan Discharge Items Patient Disposition: Home - Self-Care Reason For Visit: Malignant Neoplasm of Unspecified Kidney, Except R Discharge Diagnosis: Papillary renal cell carcinoma, left Activity: Per Instructions section Lifting: No more than 10 pounds Bathing Comment: Okay to shower after discharge, no tub bath or soaking Sexual Activity: Wait until after follow-up appointment Exercise/Sports: Wait until after follow-up appointment Driving/Machine Use: No driving while taking prescription pain medication Non-emergency contact: Surgeon and Urologist Call non-emergency contact if: your pain is not controlled, you have a fever, your temperature is above 101, your wound has increased redness, your wound has increased drainage and your wound pain has increased Follow-up/Referrals: Elver Riley [Primary Care Provider] - Diet: Dialysis Renal Addtl Attending Provider Instructions: Please take all medications as prescribed and keep all follow-ups as scheduled. Please call our office at [phone] with any questions, concerns or need to reschedule appointments for any reason. We are happy to assist you. Recovering at home: We recommend having someone with you for the first few days after surgery to help care for you. It is okay to shower tomorrow. Please avoid swimming, bathing or using hot tub until incisions are well healed. Avoid driving until you are not requiring pain medication any further. Walk at least a few times a day. Increase your distance, as you feel able. Stairs in your home are okay. Please avoid strenuous or sexual activity until your follow-up. We recommend using stool softener (i.e. Colace) to prevent constipation and s training, especially the first two weeks post operatively. Call [facility] at [phone] if you experience: Chest pain or trouble breathing (call 223 or go to the hospital). Fever of 101F or higher Symptoms of infection at incision site, including redness or swelling, warmth, or bad-smelling drainage If you have catheter, and you notice: o Bloody urine or drainage that is dark red or has large clots (Please remember a small amount of blood is normal) o No drainage from the catheter for more than 6 hours o The catheter comes out of your bladder Pain that is not controlled with medicines Pending Studies at Discharge: Yes Stand-Alone Forms: My [facility] Powered Now, Smoking Cessation Medications and DC Order Prescriptions: New tramadol 25 mg tablet 25 mg PO Q12H PRN (Reason: pain) Qty: 7 0RF Continued cyclobenzaprine 10 mg tablet 10 mg PO TID PRN (Reason: Muscle Spasm) Rx Instructions: NOT TO BE USED on dialysis days amlodipine 5 mg tablet 5 mg PO QAM Qty: 90 3RF pantoprazole [Protonix] 40 mg tablet,delayed release (DR/EC) 40 mg PO QAM Qty: 90 3RF metoprolol succinate 50 mg tablet extended release 24 hr 50 mg PO QAM omega 5-bqa-ywh-fish oil [Fish Oil] 300-1,000 mg capsule 1 cap PO BID insulin lispro [Humalog U-100 Insulin] 100 unit/mL solution See Rx Instructions subcut UD Rx Instructions: subcut use as directed; - on sliding scale - only 1-2 times per day when he eats Trulicity 1.5 mg/0.5 mL pen injector 1.5 mg subcut .COMPLEX Rx Instructions: 1.5 mg subcut once weekly; chlorthalidone 25 mg tablet 25 mg PO QAM Hold Instructions: Home Medication placed on hold at Doctor's office tamsulosin 0.4 mg capsule 0.4 mg PO QAM ropinirole 0.5 mg tablet 1 mg PO UD Rx Instructions: Take one tablet prior to dialysis. NOT TO BE USED with muscle relaxers on the same day. hydroxyzine HCl 25 mg tablet 25 mg PO DAILY PRN (Reason: anxiety) prochlorperazine maleate [Compazine] 5 mg Tablet 5 mg PO UD PRN (Reason: Nausea) Rx Instructions: prior to hd hydroxyzine pamoate [Vistaril] 25 mg Capsule 25 mg PO UD PRN (Reason: Nausea) Rx Instructions: prior to HD Discharge Orders: Discharge Order (Routine); Ordered 10/09/24 Ordered By: Noemy Roldan/Other Patient Handouts: What Is Kidney (Renal) Cancer?, Nephrectomy Dc Admission Data Admit Date/Time: 10/08/24 13:28 Attending Provider: Magdi Hahn Admit Provider: Magdi Hahn Primary Care Provider: Elver Riley Other Providers: Prabhu Pineda; aMgdi Hahn Other Interventions: Discharge Summary Assessment (RN) Last Done: 10/09/24 15:06 Coding Level of Care Code 33727 IN/OBS DISCH 30 MIN/LESS Diagnoses Papillary renal cell carcinoma C64.9
== END 2024-10-09 16:20 | disposition home or self-care (01) | DRG 656 ==
LOC: ASU 08:52 → CPL 08:52 → 3E 13:28